=== PATIENT | female | born 1985 | race Caucasian/White ===

== ENCOUNTER 2023-01-31 09:29 | Emergency (ER) | payer OTHER, SELFPAY ==
--- NOTE | ~2023-01-31 | XR_ITS ---
EXAMINATION: XR ankle RT min 3V INDICATION: Right ankle pain TECHNIQUE: Four views of the right ankle are obtained. COMPARISON: None available FINDINGS: Bone alignment is normal. There is a fracture. Posterior and plantar calcaneal enthesophyte s are noted. There is mild soft tissue swelling of ankle. IMPRESSION: 1. No acute osseous abnormality. Reviewed, dictated and finalized at location A.
[2023-01-31 09:48] VITALS: BP 123/63; PULSE 69; RESP 14; TEMP 37.1; O2SAT 100
--- NOTE | 2023-01-31 10:38 | ED.LOWEXIN ---
HPI - Extremity Injury (Lower) General Chief Complaint: Extremity Injury, Lower Stated Complaint: Right ankle injury Time Seen by Provider: 01/31/23 10:20 Source: patient, family, RN notes reviewed and old records reviewed Mode of arrival: wheelchair Limitations: no limitations History of Present Illness HPI Narrative: 37-year-old female who presents to [facility] accompanied by spouse with complaints of injury to her right ankle which occurred about 1.5 hours ago when she stepped off curb and rolled her foot. Patient reports that she has pain to the lateral aspect of her right ankle ice in place to ankle. Patient reports that she can't apply weight to her foot. No obvious deformity present. MD complaint: ankle injury Onset (ago): hour(s) (1.5 hours ago) Injury: Right: ankle Place: street/outdoors Severity scale (1-10): 9 Treatments prior to arrival: cold therapy Related Data Home Medications Medication Instructions Recorded Confirmed No Home Medications 01/31/23 01/31/23 Allergies Allergy/AdvReac Type Severity Reaction Status Date / Time No Known Allergies Allergy Verified 01/31/23 09:57 Review of Systems Review of Systems: CONSTITUTIONAL: Denies fever, chills, or sweats. EYES: Denies visual changes, redness, or discharge. ENT: Denies rhinorrhea, congestion, sore throat, or otalgia. CARDIOVASCULAR: Denies chest pain, palpitations, or edema. RESPIRATORY: Denies cough or dyspnea. GASTROINTESTINAL: Denies abdominal pain, nausea, vomiting, or diarrhea. GENITOURINARY: Denies dysuria or hematuria. SKIN: Denies rash or itching. MUSCULOSKELETAL: Denies back pain,right ankle joint pain present or myalgia. NEUROLOGIC: Denies headache, numbness, or weakness. PSYCHIATRIC: Denies anxiety or depression. All systems reviewed & are unremarkable except as noted in HPI and below PMFSH Social History Social History (Updated 02/02/23 @ 07:47 by Prachi Mccollum NP) Smoking status: Never smoker Alcohol intake: current Alcohol use details: social Substance use type: does not use Living arrangements: with family Gender identity (if verbalized by the patient): Female Comments At time of signature, agree with nursing past medical, surgical, social and family history. There is no relevant family history pertinent to the presenting complaint Exam Narrative: GENERAL: Well-appearing, well-nourished, and in no acute distress. HEAD: Normocephalic, atraumatic. EYES: PERRLA and EOMI. ENT: Nares clear, no rhinorrhea or epistaxis. Mucous membranes moist. NECK: Supple.no lymphadenopathy CHEST: Clear to auscultation. No respiratory distress.SAO2 100% on room air HEART: Regular rate and rhythm. No murmur heard. Normal peripheral pulses. ABDOMEN: Soft, nontender, nondistended, normal active bowel sounds. EXTREMITIES: Normal range of motion. No edema.Exception noted to lateral right ankle swelling with acute pain with weight bearing, movement intact to foot with strong right pedal pulse with no tingling or numbness of right foot, no bruising noted of right ankle SKIN: Warm, dry, no rash. NEURO: No focal deficits. Alert and oriented x3. Course Course Emergency Course: Patient is aware of diagnosis, understands and agrees to treatment plan.? Anticipatory guidance given.? Patient agrees to follow-up as directed and is aware of reasons to seek care at the emergency department. Portions of this record may have been created with voice recognition software Level of Care: Express Care Visit Vital Signs Vital signs: Vital Signs Temperature 37.1 C 01/31/23 09:48 Pulse Rate 69 01/31/23 09:48 Respiratory Rate 14 01/31/23 09:48 Blood Pressure 123/63 01/31/23 09:48 Pulse Oximetry 100 01/31/23 09:48 Oxygen Delivery Room Air 01/31/23 09:48 Temperature 37.1 C 01/31/23 09:48 Pulse Rate 69 01/31/23 09:48 Respiratory Rate 14 01/31/23 09:48 Blood Pressure 123/63 01/31/23 09:48 Pulse Oximetry 100 04/
--- NOTE | 2023-01-31 10:57 | PC.NURSE ---
Patient declined crutches. Has a friend that will loan her some. Shiva and Ice in place.
== END 2023-01-31 10:59 | disposition home or self-care (01) ==
PROVIDERS: Emergency Provider Registered Nurse; PCP Nurse Practitioner Family
DX: S93.401A Sprain of unspecified ligament of right ankle, initial encounter (principal); S96.911A Strain of unspecified muscle and tendon at ankle and foot level, right foot, initial encounter; X50.9XXA Other and unspecified overexertion or strenuous movements or postures, initial encounter
CPT/HCPCS: 73610; 99213; G0463